=== PATIENT | male | born 1995 | race Caucasian/White ===

== ENCOUNTER 2017-04-20 17:53 | Emergency (ER) | payer OTHER ==
[~2017-04-20] VITALS: Ht 162.6 cm; Wt 64.0 kg
[~2017-04-20 17:53] MED LIST: ACET-915 PO; IBUP-1542 PO
[2017-04-20 18:09] VITALS: Ht 162.6 cm; Wt 64.0 kg
[2017-04-20] MEDS ORDERED: ACET/BUTAL/CAFF TAB PO ONE (20:30)
--- NOTE | 2017-04-20 20:36 | ERD ---
ER Documentation Chief Complaint Date/Time DATE: 04/20/17 TIME: 20:35 Chief Complaint HEADACHE X1 WEEK, FEELING DIZZY HPI 21-year-old male presents here in emergency department for complaints of headache for 1 week, described the pain as throbbing pain, 6/10, accompanied with dizziness, describes it as lightheadedness. Patient denies any loss of balance. Patient denies any change in vision. Patient denies any head injury. Patient denies any fever or chills. Patient denies any neck pain. Patient denies any numbness or tingling. Patient took ibuprofen for pain with mild relief. ROS All systems reviewed and are negative except as per history of present illness. Medications Home Meds Active Scripts Acetamin/Butalbital/Caffeine* (Fioricet*) [id number] Tab, 1 TAB PO Q6H Y for PAIN, #30 TAB Prov:VICKIE AHUMADA NP 04/20/17 Ibuprofen* (Motrin*) 600 Mg Tab, 600 MG PO Q6H Y for PAIN AND OR ELEVATED TEMP, #30 TAB Prov:SADIA NUNEZ MD 07/21/16 Reported Medications Acetaminophen* (Tylenol*) 325 Mg Tab, 650 MG PO Q4 11/18/11 Allergies Allergies: Coded Allergies: No Known Allergy (Unverified , 04/20/17) PMhx/Soc History of Surgery: No Anesthesia Reaction: No Hx Neurological Disorder: No Hx Respiratory Disorders: Yes (ASTHMA) Hx Cardiac Disorders: No Hx Psychiatric Problems: No Hx Miscellaneous Medical Probl: No Hx Alcohol Use: No Hx Substance Use: No Hx Tobacco Use: No Smoking Status: Never smoker FmHx Family History: No coronary disease, No diabetes, No other Physical Exam Vitals Vital Signs Date Time Temp Pulse Resp B/P Pulse Ox O2 Delivery O2 Flow Rate FiO2 04/20/17 18:09 98.4 63 16 132/69 97 Physical Exam GENERAL: The patient is well developed and appropriate for usual state of health, in no apparent distress. CHEST: Clear to auscultation bilaterally. There are no rales, wheezes or rhonchi. HEART: Regular rate and rhythm. No murmurs, clicks, rubs or gallops. No S3 or S4. ABDOMEN: Soft, nontender and nondistended. Good bowel sounds. No rebound or guarding. No gross peritonitis. No gross organomegaly or masses. No Sheriff sign or McBurney point tenderness. BACK: No midline or flank tenderness. EXTREMITIES: Equal pulses bilaterally. There is no peripheral clubbing, cyanosis or edema. No focal swelling or erythema. Full range of motion. Grossly neurovascularly intact. NEURO: Alert and oriented. Cranial nerves 2-12 intact. Motor strength in all 4 extremities with 5/5 strength. Sensation grossly intact. Normal speech and gait. negative Romberg sign. Negative pronator drift. SKIN: There is no apparent rash or petechia. The skin is warm and dry. HEMATOLOGIC AND LYMPHATIC: There is no evidence of excessive bruising or lymphedema. No gross cervical, axillary, or inguinal lymphadenopathy. Results 24 hrs Current Medications Medications (Trade) Dose Ordered Sig/Darrius Route PRN Reason Start Time Stop Time Status Last Admin Dose Admin Acetaminophen/ Butalbital/ Caffeine (Fioricet) 1 tab ONCE ONCE PO 04/20/17 20:30 04/20/17 20:31 DC 04/20/17 20:57 Patient was given medication for pain here in emergency department, after treatment, patient verbalized feeling much better. Patient's pain is improved. PROCEDURE: CT Brain without contrast. CLINICAL INDICATION: Headache TECHNIQUE: A multiplanar CT of the brain was performed on a CT scanner utilizing axial imaging from the skull base through the vertex without IV contrast. The CTDIvol is 36.27 mGy and the DLP is 761.07 mGycm. One or more of the following dose reduction techniques were utilized: Automated exposure control, adjustment of the mA and/or kV according to patient size, use of iterative reconstruction technique. COMPARISON: None FINDINGS: No evidence of intracranial hemorrhage or abnormal extra-axial fluid collection. The brain parenchyma is normal attenuation morphology with preservation of sharma white differentiation and age appropriate size of the ventricles and subarachnoid spaces. The basal cisterns, posterior fossa contents, brainstem, craniocervical junction , orbits, pituitary axis, paranasal sinuses, mastoid air cells, and calvarium are unremarkable. IMPRESSION: 1. No intracranial hemorrhage or acute intracranial abnormality. RPTAT:AAJJ J Port, Physician Date Time Electronically viewed and signed by Physician Juliette on 04/20/2017 21:54 KUMAR/ Procedures/MDM Medical Decision Making: Patient symptoms are consistent with migraine headache , possible tension headache. There is low suspicion for neurological emergencies at this time since patients neurologic exam is normal. Patient did not have any altered level consciousness, vomiting, changes in balance or memory and did not have any head injury. Patients CT scan of the head does not show any neurological emergencies at this time. Rx: Fioricet Zofran Dispostion: Home. Stable Departure Diagnosis: Primary Impression: Headache Headache type: unspecified Headache chronicity pattern: acute headache Intractability: not intractable Qualified Code: R51 - Acute nonintractable headache, unspecified headache type Condition: Stable Patient Instructions: Self-Care for Headaches VICKIE AHUMADA NP Apr 20, 2017 20:36
--- NOTE | 2017-04-20 21:55 | RADRPT ---
PROCEDURE: CT Brain without contrast. CLINICAL INDICATION: Headache TECHNIQUE: A multiplanar CT of the brain was performed on a CT scanner utilizing axial imaging fro m the skull base through the vertex without IV contrast. The CTDIvol is 36.27 mGy and the DLP is 76 1.07 mGycm. One or more of the following dose reduction techniques were utilized: Automated exposu re control, adjustment of the mA and/or kV according to patient size, use of iterative reconstructio n technique. COMPARISON: None FINDINGS: No evidence of intracranial hemorrhage or abnormal extra-axial fluid collection. The brain parenchyma is normal attenuation morphology with preservation of sharma white differentiatio n and age appropriate size of the ventricles and subarachnoid spaces. The basal cisterns, posterior fossa contents, brainstem, craniocervical junction, orbits, pituitary axis, paranasal sinuses, mastoid air cells, and calvarium are unremarkable. IMPRESSION: 1. No intracranial hemorrhage or acute intracranial abnormality. RPTAT:AAJJ Physician Juliette Date Time Electronically viewed and signed by Physician Juliette on 04/20/2017 21:54 KUMAR/
[2017-04-20] MEDS ORDERED: FIORICET PO (22:01)
[2017-04-20 22:50] VITALS: BP 127/68; PULSE 68; RESP 18
== END 2017-04-20 22:51 | disposition home or self-care (01) ==
LOC: FTE 17:53
DX: R51 Headache (principal); J45.909 Unspecified asthma, uncomplicated
CPT/HCPCS: 70450; Z7502; Z7610

== ENCOUNTER 2018-08-25 16:00 | Emergency (ER) | payer OTHER ==
[~2018-08-25] VITALS: Ht 162.6 cm; Wt 68.4 kg
[~2018-08-25 16:00] MED LIST changes: +FIORICET PO
[2018-08-25 16:08] VITALS: BP 133/87; PULSE 80; RESP 18; Ht 162.6 cm; Wt 68.4 kg
[2018-08-25] MEDS ORDERED: IBUPROFEN 600 MG TAB PO ONE (20:30)
[2018-08-25] MEDS ORDERED: PRED20TA PO (21:27)
[2018-08-25] MEDS ORDERED: IBUP-1542 PO (21:27)
[2018-08-25] MEDS ORDERED: AMOX1TAB10 PO (21:27)
--- NOTE | 2018-08-25 21:28 | ERD ---
ER Documentation Chief Complaint Chief Complaint headache over a year HPI 23-year-old male presents with frontal headache she states that over the last year. Was seen approximate 1 year ago had a normal CT. Denies any history of injury. Is worsened over the last week. Denies any nasal congestion, fevers, visual changes, vomiting, deficits. ROS All systems reviewed and are negative except as per history of present illness. Medications Home Meds Active Scripts Amoxicillin/Potassium Clav (Amox-Clav 875-125 mg Tablet) 875-125 mg Tab, 1 TAB PO BID for 10 Days, #14 TAB Prov:MELITON GRUBBS MD 08/25/18 Prednisone* (Prednisone*) 20 Mg Tab, 40 MG PO DAILY for 4 Days, TAB Prov:MELITON GRUBBS MD 08/25/18 Ibuprofen* (Motrin*) 600 Mg Tab, 600 MG PO Q6, #20 TAB Prov:MELITON GRUBBS MD 08/25/18 Acetamin/Butalbital/Caffeine* (Fioricet*) [id number] Tab, 1 TAB PO Q6H PRN for PAIN, #30 TAB Prov:VICKIE AHUMADA NP 04/20/17 Ibuprofen* (Motrin*) 600 Mg Tab, 600 MG PO Q6H PRN for PAIN AND OR ELEVATED TEMP, #30 TAB Prov:SADIA NUNEZ MD 07/21/16 Reported Medications Acetaminophen* (Tylenol*) 325 Mg Tab, 650 MG PO Q4 11/18/11 Allergies Allergies: Coded Allergies: No Known Allergy (Unverified , 04/20/17) PMhx/Soc Medical and Surgical Hx: pt denies Medical Hx, pt denies Surgical Hx History of Surgery: No Anesthesia Reaction: No Hx Neurological Disorder: No Hx Respiratory Disorders: Yes (ASTHMA) Hx Cardiac Disorders: No Hx Psychiatric Problems: No Hx Miscellaneous Medical Probl: No Hx Alcohol Use: No Hx Substance Use: No Hx Tobacco Use: No Smoking Status: Never smoker FmHx Family History: No diabetes, No coronary disease, No other Physical Exam Vitals Vital Signs Date Temp Pulse Resp B/P (MAP) Pulse Ox O2 O2 Flow FiO2 Time Delivery Rate 08/25/18 97.8 80 18 133/87 96 16:08 (102) Physical Exam Const: No acute distress Head: Atraumatic Eyes: Normal Conjunctiva ENT: Normal External Ears, Nose and Mouth. Neck: Full range of motion. No meningismus. Resp: Clear to auscultation bilaterally Cardio: Regular rate and rhythm, no murmurs Abd: Soft, non tender, non distended. Normal bowel sounds Skin: No petechiae or rashes Back: No midline or flank tenderness Ext: No cyanosis, or edema Neur: Awake and alert Psych: Normal Mood and Affect Results 24 hrs Current Medications Medications Dose Sig/Darrius Start Time Status Last (Trade) Ordered Route PRN Stop Time Admin Dose Reason Admin Ibuprofen 600 mg ONCE ONCE 08/25/18 DC 08/25/18 (Motrin) PO 20:30 08/25/18 20:20 20:31 Procedures/MDM She presents with an unspecified headache over the last year which is worsening. There is frontal in nature. Follow-up CT brain was performed. Should there is some ethmoidal thickening and air-fluid suggestive of sinusitis. Will treat for this. He will be treated with short course of prednisone, ibuprofen, Augmentin, primary care follow-up and return precautions. There is no signs or symptoms of mass-effect, bleeding, neurologic deficit, meningitis. The patient was stable with no new complaints during the ER course. Clinically, there is no current evidence to suggest meningitis, sepsis, acute abdomen, pneumonia, stroke, acute coronary syndrome, pulmonary embolism, aortic dissection or any other emergent condition appearing to require further evaluation or hospitalization. Patient counseled regarding my diagnostic impression and care plan. Prior to discharge all questions answered. Pt agrees with treatment plan and understands strict return precautions. Pt is instructed to follow up with primary care provider within 24-48 hours. Precautionary instructions provided including instructions to return to the ER if not improving or for any worsening or changing symptoms or concerns. Departure Diagnosis: Primary Impression: Sinusitis Sinusitis location: ethmoidal Chronicity: unspecified Qualified Codes: J32.2 - Chronic ethmoidal sinusitis Additional Impression: Headache Headache type: unspecified Headache chronicity pattern: unspecified pattern Intractability: not intractable Qualified Codes: R51 - Headache Condition: Stable Patient Instructions: Self-Care for Headaches, Sinusitis, Abx Tx Additional Instructions: Sinus infection on CT scan which may be cause of headache. We will treat for this. Recheck for new or worsening symptoms with primary care doctor. MELITON GRUBBS MD Aug 25, 2018 21:28
== END 2018-08-25 21:43 | disposition home or self-care (01) ==
LOC: FTE 16:00
DX: J32.2 Chronic ethmoidal sinusitis (principal); J45.909 Unspecified asthma, uncomplicated
CPT/HCPCS: 70450; Z7502; Z7610